=== PATIENT | male | born 1975 ===

== ENCOUNTER 2022-05-04 14:24 | Outpatient (REF) | payer BC, SELFPAY ==
--- NOTE | ~2022-05-04 | XR_ITS ---
EXAMINATION: XR SHOULDER, LEFT CLINICAL INFORMATION: Left shoulder pain COMPARISON: None TECHNIQUE: Four views of the left shoulder. FINDINGS: The bones and soft tissues are normal. No fracture. Glenohumeral and acromioclavicular alignment is anatomic with normal joint space. No abnormal soft tissue calcifications. XR/XR shoulder LT min 2V IMPRESSION: Normal left shoulder.
== END 2022-05-04 14:25 | disposition home or self-care (01) ==
LOC: HO.XRAY 14:24
PROVIDERS: PCP Family Medicine; Visit Provider Physician Assistant
DX: M25.512 Pain in left shoulder (principal)
CPT/HCPCS: 73030

== ENCOUNTER 2023-02-04 05:41 | Emergency (ER) | payer BC, SELFPAY ==
--- NOTE | 2023-02-04 | ECG_ITS ---
Test Reason : SEIZURE Blood Pressure : / mmHG Vent. Rate : 091 BPM Atrial Rate : 091 BPM P-R Int : 182 ms QRS Dur : 082 ms QT Int : 334 ms P-R-T Axes : 016 037 040 degrees QTc Int : 410 ms Normal sinus rhythm Normal ECG No previous ECGs available Referred By: Generic ED Physician Electronically Signed By:Daren Sagastume
--- NOTE | ~2023-02-04 | CT_ITS ---
EXAMINATION: CT brain and CT cervical spine without contrast. CLINICAL INDICATION: Right forehead hematoma. Rule out fracture. TECHNIQUE: 5 mm thin axial and reformatted 2 mm thin sagittal and coronal images of brain were obtained. Subsequently axial 3 mm thin and 2 mm thin sagittal and coronal images of cervical spine were obtained. [facility] [id number] findings: FINDINGS: Brain: There is no acute intra-axial, extra-axial bleed, masses or midline shift. There is no acute infarction evolution. There is a left frontal temporal craniotomy with left inferior frontal and lateral temporal lobe encephalomalacia with ipsilateral dilatation of left frontal horn lateral ventricle. The cutler to white matter is maintained normal. Bone windows reveal no evidence of fracture. There is left frontotemporal craniotomy. No scalp soft tissue swelling seen. The paranasal sinuses are well-aerated and clear. Cervical spine: On sagittal reconstructed images there is maintained cervical lordosis. The vertebral heights and alignment is normal. There is loss of C5-C6 disc height with ventral and posterior spondylosis. Rest the disc heights, all vertebral heights and alignment is preserved. There is mild superior spurring at the C1-C2 disc level. The craniovertebral junction is normal. The prevertebral soft tissues are normal. No visible acute fracture, dislocation or subluxation seen. CT/CT cervical spine wo IV con IMPRESSION: No acute intracranial process seen. There is a left frontotemporal craniotomy with left frontal temporal encephalomalacia and ipsilateral dilatation of frontal horn lateral ventricle. There is no calvarial fracture or any visible scalp hematoma. Mild straightening of cervical lordosis without acute fracture, dislocation or subluxation seen. Degenerative disc changes and spondylosis C5-C6 disc level.
--- NOTE | ~2023-02-04 | CT_ITS ---
EXAMINATION: CT brain and CT cervical spine without contrast. CLINICAL INDICATION: Right forehead hematoma. Rule out fracture. TECHNIQUE: 5 mm thin axial and reformatted 2 mm thin sagittal and coronal images of brain were obtained. Subsequently axial 3 mm thin and 2 mm thin sagittal and coronal images of cervical spine were obtained. [facility] 1376 findings: FINDINGS: Brain: There is no acute intra-axial, extra-axial bleed, masses or midline shift. There is no acute infarction evolution. There is a left frontal temporal craniotomy with left inferior frontal and lateral temporal lobe encephalomalacia with ipsilateral dilatation of left frontal horn lateral ventricle. The cutler to white matter is maintained normal. Bone windows reveal no evidence of fracture. There is left frontotemporal craniotomy. No scalp soft tissue swelling seen. The paranasal sinuses are well-aerated and clear. Cervical spine: On sagittal reconstructed images there is maintained cervical lordosis. The vertebral heights and alignment is normal. There is loss of C5-C6 disc height with ventral and posterior spondylosis. Rest the disc heights, all vertebral heights and alignment is preserved. There is mild superior spurring at the C1-C2 disc level. The craniovertebral junction is normal. The prevertebral soft tissues are normal. No visible acute fracture, dislocation or subluxation seen. CT/CT head/brain wo IV con IMPRESSION: No acute intracranial process seen. There is a left frontotemporal craniotomy with left frontal temporal encephalomalacia and ipsilateral dilatation of frontal horn lateral ventricle. There is no calvarial fracture or any visible scalp hematoma. Mild straightening of cervical lordosis without acute fracture, dislocation or subluxation seen. Degenerative disc changes and spondylosis C5-C6 disc level.
[2023-02-04 05:47] VITALS: BP 118/55; PULSE 98; RESP 18; TEMP 36.9; O2SAT 95; BMI 27.1
[2023-02-04 06:09] LABS: Basophils Absolute Auto 0.1 X10*3/uL (0.0-0.2); Eosinophils Absolute Auto 0.1 X10*3/uL (0.0-0.4); Eosinophils Percent Auto 1.7 % (0-4); Hematocrit 44.2 % (42.0-52.0); Hemoglobin 14.7 g/dl (14.0-18.0); Imm Gran Abs Auto 0.15 X10*3/uL (0.00-0.03); Imm Gran Pct Auto 2.5 % (0.0-0.4); Lymphocytes Absolute Auto 1.2 X10*3/uL (1.2-4.9); Lymphocytes Percent Auto 20.2 % (20-40); MANUAL DIFF FLAG NO; Mean Corpuscular HGB Conc 33.3 g/dl (31.0-36.0); Mean Corpuscular Hemoglobin 28.4 pg (27.0-33.0); Mean Corpuscular Volume 85.3 fL (80.0-98.0); Mean Platelet Volume 10.3 fL (9.4-12.4); Monocytes Absolute Auto 0.4 X10*3/uL (0.1-1.2); Monocytes Percent Auto 6.5 % (2-11); Neutrophils Absolute Auto 4.1 x10*3/uL (2.0-8.3); Neutrophils Percent Auto 68.1 % (45-73); Platelet Count 231 X10*3/uL (160-400); Red Blood Count 5.18 X10*6/uL (4.60-5.80); Red Cell Distribution Width 12.4 % (11.0-16.0)
[2023-02-04 06:24] LABS: Alanine Aminotransferase 67 U/L (0-40); Alkaline Phosphatase 62 U/L (39-117); Anion Gap 22 (12-20); Aspartate Amino Transferase 27 U/L (5-37); Blood Urea Nitrogen 16 mg/dL (9-16); Calcium 8.7 mg/dL (8.4-10.2); Carbon Dioxide 18 mmol/L (22-29); Chloride 105 mmol/L (96-108); Creatinine Clr Calc Pharmacy 84.9; Estimated Glomerular Filt Rate > 60; Ethanol < 10 mg/dL; Glucose Random 132 mg/dL (60-115); Potassium 4.8 mmol/L (3.3-5.1); Sodium 140 mmol/L (135-145); Total Protein 6.4 g/dL (6.5-8.0)
--- NOTE | 2023-02-04 07:34 | ECG_ITS ---
Test Reason : Seizure, evaluate QTC interval Blood Pressure : / mmHG Vent. Rate : 075 BPM Atrial Rate : 075 BPM P-R Int : 178 ms QRS Dur : 086 ms QT Int : 338 ms P-R-T Axes : 024 037 039 degrees QTc Int : 377 ms Normal sinus rhythm Normal ECG When compared with ECG of 04-FEB-2023 06:12, No significant change was found Referred By: Dakotah Brown Electronically Signed By:Daren Sagastume
--- NOTE | 2023-02-04 07:35 | ED.SEIZURE ---
HPI - Seizure General Chief Complaint: Seizure Stated Complaint: LAC Time Seen by Provider: 02/04/23 07:18 Source: patient and family (Fiancee) Mode of arrival: EMS Limitations: no limitations History of Present Illness HPI Narrative: 47-year-old male who presents emergency department for evaluation of seizure. The patient has a known seizure disorder and takes Lamictal twice a day. He states that he has been compliant with his medications and his last seizure was 10 years prior. The patient was sleeping. His fiancee states that she got up at 0430 hours. She then heard unusual breathing noises coming from the patient the patient then got up and started walking towards door. He yelled and then fell forward striking his head and stomach on the floor. The fiancee states he then started shaking all over. He then had 1-2 episodes of vomiting. She called an ambulance and was transported to the emergency department. At the time my evaluation, patient is awake and alert back to his baseline. The patient does have sleep apnea and he believes that he has not been getting very good sleep. He states he has been more tired than usual. His fiancee states that when he is wearing the CPAP at night he snores and does not look like he is getting good sleep. The fiance states that he has also had 2 episodes of sleepwalking over the last 2-3 weeks which is unusual for him. The patient denying being ill in any way over the past week. He denied fever, chills, rhinorrhea, sore throat, cough, chest pain, shortness of breath. He denies alcohol or drug use. Seizure History: Yes Place: Home Related Data Previous Rx's Medication Instructions Recorded cyclobenzaprine 10 mg tablet 10 mg PO BEDTIME #10 tabs 05/04/22 lidocaine 4 % topical patch 1 patch topical DAILY PRN pain #15 05/04/22 (AsperFlex (lidocaine)) ea Allergies Allergy/AdvReac Type Severity Reaction Status Date / Time No Known Allergies Allergy Verified 05/04/22 13:38 Review of Systems Review of Systems: Yes all other systems are reviewed and are negative [facility] Past Medical History [facility] Narrative: Past medical history: Seizure disorder. Social history: The patient states that he vapes nicotine products 10 times a day for 4 years. Denies alcohol use. He denies drug use. Social History Social History Alcohol intake: never Patient Tobacco Use Status: Never used Tobacco Smoked in Last 30 Days: No Use of substances other than those prescribed or required for medical reasons: No Advance Directives: No Advance Directives Information Provided: Yes Physical Exam Vital Signs: Vital Signs: Last Vital Signs Temp 98.4 F 02/04/23 05:47 Pulse 98 02/04/23 05:47 Resp 18 02/04/23 05:47 BP 118/55 L 02/04/23 05:47 Pulse Ox 95 02/04/23 05:47 O2 Del Method Room Air 02/04/23 05:47 BMI result Body Mass Index 27.1 Const: General: cooperative and no acute distress Orientation/consciousness: oriented to person and oriented to place Limitations: no limitations HEENT: Head: Yes normal to inspection, Yes normocephalic and Yes hematoma (With ecchymosis right forehead) Ears: external ears normal General nose exam: Normal external nose present Face and sinus: Yes normal facial exam Mouth: Normal oral and palatal mucosa present Throat: Yes posterior oropharynx normal Eyes: General: appearance normal, both eyes and all related structures Pupils: Equal, round and reactive pupils present Neck: Other: Patient has tenderness palpation of his cervical spine diffusely as well as his trapezius muscles bilateral Chest: Chest palpation & inspection: normal inspection of the chest and normal palpation of entire chest wall Resp: Effort & Inspection: normal respiratory effort and able to speak in complete sentences Auscultation: clear to auscultation bilaterally Cardio: Rate: regular rate Rhythm: regular rhythm Heart sounds: S1 normal heart sound present, S2 normal heart sound present and no murmurs GI: Inspection: Yes normal to inspection Palpation (GI): Soft to palpation, nontender and no guarding Auscultation: normal bowel sounds : General: Yes no CVA tenderness Back/Spine/Pelvis: Back: no CVA tenderness Skin: General skin exam: no rashes or lesions noted Neuro: General: oriented to person and oriented to place Cranial nerves: Yes CN's II-XII intact bilaterally and Yes Equal, round and reactive pupils present Cognition (Neuro): normal cognition Motor exam (neuro): 5/5 motor strength present throughout Extrem: General: Yes normal to inspection Psych: Appearance: grossly normal Speech and movement: Normal speech and movement present Affect: normal affect Attitude: cooperative Thought process: Normal thought process present Medical Decision Making Medical Decision Making MDM Narrative: 47-year-old male with a known seizure disorder, on Lamictal, compliant with medications who presents emergency department by ambulance for evaluation of a seizure. The patient's last seizure was 10 years prior. Patient does have sleep apnea and he believes that he has not been getting good sleep recently and has been feeling tired and lack of sleep may have triggered a seizure.. He denied drinking alcohol or using drugs. Patient's physical examination did reveal tenderness palpation of his neck as well as hematoma to his right forehead with tenderness with palpation of this area. I did order laboratory evaluation to include CBC, CMP, alcohol level, urine drug screen. Also ordered EKG to evaluate the patient's QTC interval and the patient will be kept on a cardiac surgeon to rule out arrhythmia is possible cause of his seizure. CT scan of the patient's head and cervical spine will be obtained. Patient was ordered to get normal saline IV x1 L and Ativan 2 mg IV to try to raise his seizure threshold and prevent 2nd seizure while he is here in the emergency department. 0744: My independent interpretation patient's laboratory evaluation is as follows: CBC was normal. CMP revealed a low bicarb of 18, elevated anion gap of 22 which is consistent with lactic acidosis secondary to seizure. Glucose was elevated 132. The ALT was elevated 67. At the end of my shift, patient's workup is not complete, therefore the patient's care was turned over to my colleague, Dr. Fox. Differential Diagnosis Differential diagnosis includes was not limited to seizure, pseudo-seizure, skull fracture, neck fracture, electrolyte abnormality Lab Data 02/04/23 06:05 02/04/23 06:05 Labs: Lab Results 02/04/23 02/04/23 Range/Units 06:05 06:05 WBC 6.0 (4.8-10.8) X10*3/uL RBC 5.18 (4.60-5.80) X10*6/uL Hgb 14.7 (14.0-18.0) g/dl Hct 44.2 (42.0-52.0) % MCV 85.3 (80.0-98.0) fL MCH 28.4 (27.0-33.0) pg MCHC 33.3 (31.0-36.0) g/dl RDW 12.4 (11.0-16.0) % Plt Count 231 (160-400) X10*3/uL MPV 10.3 (9.4-12.4) fL Immature Gran % (Auto) 2.5 H (0.0-0.4) % Neut % (Auto) 68.1 (45-73) % Lymph % (Auto) 20.2 (20-40) % [place] % (Auto) 6.5 (2-11) % Eos % (Auto) 1.7 (0-4) % Baso % (Auto) 1.0 (0-2) % Lymph # (Auto) 1.2 (1.2-4.9) X10*3/uL [place] # (Auto) 0.4 (0.1-1.2) X10*3/uL Eos # (Auto) 0.1 (0.0-0.4) X10*3/uL Baso # (Auto) 0.1 (0.0-0.2) X10*3/uL Abs Immat Gran (auto) 0.15 H (0.00-0.03) X10*3/uL Absolute Neuts (auto) 4.1 (2.0-8.3) x10*3/uL Absolute Nucleated RBC 0.000 (0.0-0.012) X10*3/uL Nucleated RBC % (auto) 0.0 (0.0-0.2) /100WBC Sodium 140 (135-145) mmol/L Potassium 4.8 (3.3-5.1) mmol/L Chloride 105 (96-108) mmol/L Carbon Dioxide 18 L (22-29) mmol/L Anion Gap 22 H (12-20) BUN 16 (9-16) mg/dL Creatinine 1.18 (0.5-1.4) mg/dL Estim Creat Clear Calc 84.9 Estimated GFR > 60 Random Glucose 132 H (60-115) mg/dL Calcium 8.7 (8.4-10.2) mg/dL Total Bilirubin 1.0 (0.0-1.0) mg/dL AST 27 (5-37) U/L ALT 67 H (0-40) U/L Alkaline Phosphatase 62 (39-117) U/L Total Protein 6.4 L (6.5-8.0) g/dL Albumin 4.0 (3.5-5.0) g/dL Ethyl Alcohol < 10 mg/dL Discharge Plan Discharge Clinical Impression: Seizure, CHI (closed head injury), Traumatic hematoma of forehead, Acute neck pain, Fall Patient Disposition: Still a Patient Prescriptions: No Action cyclobenzaprine 10 mg tablet 10 mg PO BEDTIME Qty: 10 0RF lidocaine [AsperFlex (lidocaine)] 4 % adhesive patch,medicated 1 patch topical DAILY PRN (Reason: pain) Qty: 15 0RF
[2023-02-04 07:46] VITALS: BP 119/87; PULSE 79; RESP 18; O2SAT 97
[2023-02-04] MEDS: LORazepam 2 MG/ML VIAL IVPUSH (07:47)
[2023-02-04] MEDS: 0.9 % Sodium Chloride 1,000 ML 999 ML IV (07:47)
[2023-02-04 08:35] LABS: Amphetamine Screen Urine Not Detected (Not Detect); Barbiturates, Urine Not Detected (Not Detect); Benzodiazepines Screen Urine Not Detected (Not Detect); Cannabinoid Screen Urine Not Detected (Not Detect); Cocaine Screen Urine Not Detected (Not Detect); Fentanyl, urine Not Detected (Not Detect); Opiate Screen Urine Not Detected (Not Detect); Phencyclidine Screen Urine Not Detected (Not Detect)
[2023-02-04 08:45] VITALS: BP 113/62; PULSE 83; RESP 19; O2SAT 97
[2023-02-04 09:58] VITALS: BP 113/62; PULSE 69; RESP 14; O2SAT 97
== END 2023-02-04 09:59 | disposition home or self-care (01) ==
PROVIDERS: Emergency Provider Emergency Medicine Emergency Medical Services
DX: S00.93XA Contusion of unspecified part of head, initial encounter (principal); R56.9 Unspecified convulsions; M54.2 Cervicalgia; R51.9 Headache, unspecified; R07.89 Other chest pain; W01.10XA Fall on same level from slipping, tripping and stumbling with subsequent striking against unspecified object, initial encounter; Y93.9 Activity, unspecified; Y92.9 Unspecified place or not applicable; Y99.9 Unspecified external cause status; Z79.899 Other long term (current) drug therapy
CPT/HCPCS: 36415; 70450; 72125; 80053; 80307; 82077; 85025; 93005; 96374; 99284; 99285; J2060

== ENCOUNTER 2023-07-25 18:13 | Emergency (ER) | payer BC, SELFPAY ==
--- NOTE | ~2023-07-25 | CT_ITS ---
EXAMINATION: CT HEAD WITHOUT CONTRAST CLINICAL INFORMATION: Altered mental status. Slurred speech. COMPARISON: CT head 02/04/2023. TECHNIQUE: Contiguous axial imaging was performed from the skull base to vertex without intravenous administration of contrast. This CT examination was performed using dose optimization techniques as appropriate, variously including the following: *Automated exposure control *Adjustment of mA and/or kV according to patient size (this includes techniques or standardized protocols for targeted exams where dose is matched to indication/reason for exam; i.e. extremities or head) *Use of iterative reconstruction technique DLP: 835 mGy-cm FINDINGS: There are chronic changes of a left craniotomy. There is gliosis and encephalomalacia involving the lesser hemisphere with involvement of the left frontal lobe, left anterior temporal lobe, and insula. [place]ar-white matter differentiation is otherwise preserved and there is no evidence of acute territorial infarct. No acute hemorrhage or abnormal extra-axial collection. No intracranial mass effect or hydrocephalus. The skull base is intact. No mastoid or middle ear effusion. There is a retention cyst within the alveolar recess of the right maxillary sinus. Otherwise no active paranasal sinus disease. CT/CT head/brain wo IV con IMPRESSION: Stable examination with chronic changes of a left craniotomy. 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 No evidence of acute territorial infarct or hemorrhage.
--- NOTE | 2023-07-25 18:16 | ECG_ITS ---
Test Reason : AMS Blood Pressure : / mmHG Vent. Rate : 074 BPM Atrial Rate : 074 BPM P-R Int : 174 ms QRS Dur : 086 ms QT Int : 352 ms P-R-T Axes : 047 043 046 degrees QTc Int : 390 ms Normal sinus rhythm Normal ECG When compared with ECG of 04-FEB-2023 08:25, No significant change was found Referred By: Generic ED Physician Electronically Signed By:AUDRA YADAV
[2023-07-25 18:17] VITALS: BMI 32.5
--- NOTE | 2023-07-25 18:17 | ED_ITS ---
HPI - General Adult General Chief complaint: Neuro Symptoms/Deficit Stated complaint: slurred speech confusion Time Seen by Provider: 07/25/23 19:00 Source: patient Mode of arrival: ambulatory Limitations: no limitations History of Present Illness HPI narrative: Patient with history of meningioma more than 10 years ago , post craniotomy on Lamictal post surgery seizures fairly compliant. Medication 6 months ago had a seizure in 02/20 so restarted on Lamictal been doing okay since yesterday evening been feeling weak and tired last night patient went to bed at midnight and woke up at 05:30 which is usual for him and 10:30 was feeling tired and sleepy went back to sleep and woke up at 17:30 when he woke up at 17:30 noted the patient has some slurred speech able to talk but was little confused by the time patient came to the ER his speech was back to normal no other focal deficit patient ambulatory assist no headache no seizures Related Data Previous Rx's Medication Instructions Recorded cyclobenzaprine 10 mg tablet 10 mg PO BEDTIME #10 tabs 05/04/22 lidocaine 4 % topical patch 1 patch topical DAILY PRN pain #15 05/04/22 (AsperFlex (lidocaine)) ea Allergies Allergy/AdvReac Type Severity Reaction Status Date / Time No Known Allergies Allergy Verified 05/04/22 13:38 Review of Systems 2 Review of Systems: Yes all other systems are reviewed and are negative [facility] Past Medical History Medical History Seizure disorder Meningioma Surgical History H/O craniotomy Social History Social History Alcohol intake: never Patient Tobacco Use Status: Never used Tobacco Smoked in Last 30 Days: Yes Use of substances other than those prescribed or required for medical reasons: No Advance Directives: No Advance Directives Information Provided: No Physical Exam ED Vital Signs: Vital Signs - 24 hr 07/25/23 18:27 07/25/23 20:37 Pulse Rate 85 70 Respiratory Rate 16 16 Blood Pressure 130/48 L 125/77 Pulse Oximetry 93 98 Oxygen Delivery Method Room Air Room Air BMI result Body Mass Index 32.5 Appearance: Alert. Oriented X3. No acute distress. Eyes: PERRLA, No Nystagmus ENT: Pharynx normal. Oral Mucosa moist Neck: Normal inspection. Neck supple. CVS: Normal heart rate and rhythm. Pulses normal. Respiratory: No respiratory distress. Equal air entry bilateral, no wheezing/rales/rhonchi Abdomen: Soft and nontender. Bowel sounds are present, no mass palpable, no CVA tenderness Skin: Skin warm and dry. Normal skin color. Normal skin turgor. Extremities: No lower extremity edema. No calf tenderness Neuro: Oriented X 3. No motor deficit. No sensory deficit.No cerebellar signs , cranial nerves II-XII intact Course Course Course Narrative: RME performed by Meghan Sadler PA-C. Patient is a 47 year old assigned male at presenting to the emergency department with left shoulder pain. Patient's partner states that the patient had an episode of confusion where he didn't know where he was, what he was doing, todays date, or the year. Labs and imaging ordered. Patient placed back in the waiting room pending room availability and results. Medical Decision Making Medical Decision Making [facility] Narrative: Etiology patient lethargic and sleeping is not very clear no upper respiratory symptoms no other source of infection labs are stable patient had no neuro deficit in the ER likely patient was confused earlier post? post Ictal /tia vs viral syndrome. At this time patient does not have any neuro deficit will discharge patient advised to continue his medication and follow with PCP patient had low platelets 157 1000 will hold any antiplatelets at this time Differential Diagnosis Differential Diagnoses: The differential diagnosis associated with the presentation includes Seizures/viral syndrome/TIA Lab Data [facility] Lab Attestation statement: I reviewed the patient's lab results. 07/25/23 18:36 07/25/23 18:36 Labs: Lab Results 07/25/23 07/25/23 07/25/23 Range/Units 18:30 18:36 21:45 WBC 7.3 (4.8-10.8) X10*3/uL RBC 5.05 (4.60-5.80) X10*6/uL Hgb 14.8 (14.0-18.0) g/dl Hct 44.0 (42.0-52.0) % MCV 87.1 (80.0-98.0) fL MCH 29.3 (27.0-33.0) pg MCHC 33.6 (31.0-36.0) g/dl RDW 12.3 (11.0-16.0) % Plt Count 157 L D (160-400) X10*3/uL MPV 11.1 (9.4-12.4) fL Immature Gran % (Auto) 1.2 H (0.0-0.4) % Neut % (Auto) 68.9 (45-73) % Lymph % (Auto) 20.3 (20-40) % [place] % (Auto) 6.2 (2-11) % Eos % (Auto) 2.6 (0-4) % Baso % (Auto) 0.8 (0-2) % Lymph # (Auto) 1.5 (1.2-4.9) X10*3/uL [place] # (Auto) 0.5 (0.1-1.2) X10*3/uL Eos # (Auto) 0.2 (0.0-0.4) X10*3/uL Baso # (Auto) 0.1 (0.0-0.2) X10*3/uL Abs Immat Gran (auto) 0.09 H (0.00-0.03) X10*3/uL Absolute Neuts (auto) 5.0 (2.0-8.3) x10*3/uL Absolute Nucleated RBC 0.000 (0.0-0.012) X10*3/uL Nucleated RBC % (auto) 0.0 (0.0-0.2) /100WBC PT 11.5 (11.1-13.3) SEC INR 0.9 (0.9-1.1) APTT 30.8 (26.0-36.4) SEC Sodium 142 (135-145) mmol/L Potassium 4.2 (3.3-5.1) mmol/L Chloride 106 (96-108) mmol/L Carbon Dioxide 27 (22-29) mmol/L Anion Gap 13 (12-20) BUN 19 H (9-16) mg/dL Creatinine 1.09 (0.5-1.4) mg/dL Estim Creat Clear Calc 112.9 Estimated GFR > 60 POC Glucose 99 (60-115) mg/dL Random Glucose 104 (60-115) mg/dL Calcium 9.5 D (8.4-10.2) mg/dL Magnesium 2.1 (1.6-2.6) mg/dL Total Bilirubin 0.8 (0.0-1.0) mg/dL AST 18 (5-37) U/L ALT 22 (0-40) U/L Alkaline Phosphatase 56 (39-117) U/L Total Protein 7.0 (6.5-8.0) g/dL Albumin 4.4 (3.5-5.0) g/dL Urine Color Dark Yellow Urine Appearance Cloudy Urine pH 7.5 (5.0-9.0) Ur Specific [place] 1.020 (1.005-1.025) Urine Protein Negative (Neg-Trace) mg/dL Urine Glucose (UA) Negative (Negative) mg/dL Urine Ketones Negative (Negative) mg/dL Urine Blood Negative (Negative) Urine Nitrite Negative (Negative) Ur Leukocyte Esterase Negative (Negative) Urine Opiates Screen Not Detected (Not Detect) Urine Fentanyl Screen Not Detected (Not Detect) Ur Barbiturates Screen Not Detected (Not Detect) Lamotrigine Cancelled Ur Phencyclidine Scrn Not Detected (Not Detect) Ur Amphetamines Screen Not Detected (Not Detect) U Benzodiazepines Scrn Not Detected (Not Detect) Urine Cocaine Screen Not Detected (Not Detect) U Marijuana (THC) Screen POSITIVE H (Not Detect) Ethyl Alcohol < 10 mg/dL COVID-19 (SHANIQUA) Negative (Negative) COVID-19 Clin Com See Note Discharge Plan Discharge Clinical Impression: Weakness Patient Disposition: Home, Self-Care Instructions: Weakness (ED) Additional Instructions: Drink plenty of fluids Follow with PCP if any concerns Prescriptions: No Action cyclobenzaprine 10 mg tablet 10 mg PO BEDTIME Qty: 10 0RF lidocaine [AsperFlex (lidocaine)] 4 % adhesive patch,medicated 1 patch topical DAILY PRN (Reason: pain) Qty: 15 0RF Interventions: ED Discharge Assessment Last Done: 07/25/23 22:21 Discharge Date/Time: 07/25/23 22:24
--- NOTE | 2023-07-25 18:25 | PC.NURSE ---
PT/ WAS TRANSFER TO ROOM 4 WITH CLINICAL CABINET INSTALLER KAILASH.
[2023-07-25 18:27] VITALS: BP 130/48; PULSE 85; RESP 16; O2SAT 93
[2023-07-25 18:34] LABS: Glucose, Whole Blood 99 mg/dL (60-115)
[2023-07-25 18:40] LABS: MANUAL DIFF FLAG NO
--- NOTE | 2023-07-25 18:44 | PC.NURSE ---
patient awake and alert, affect does not vary. patients pupils pinpoint, seems to be very confused as to why he is in the ER. patient states he takes his seizure medications as prescribed and has not had a seizure since january.
[2023-07-25 18:58] LABS: Alanine Aminotransferase 22 U/L (0-40); Albumin Level 4.4 g/dL (3.5-5.0); Alkaline Phosphatase 56 U/L (39-117); Anion Gap 13 (12-20); Aspartate Amino Transferase 18 U/L (5-37); Bilirubin Total 0.8 mg/dL (0.0-1.0); Blood Urea Nitrogen 19 mg/dL (9-16); Calcium 9.5 mg/dL (8.4-10.2); Carbon Dioxide 27 mmol/L (22-29); Chloride 106 mmol/L (96-108); Creatinine Clr Calc Pharmacy 112.9; Estimated Glomerular Filt Rate > 60; Ethanol < 10 mg/dL; Glucose Random 104 mg/dL (60-115); Magnesium 2.1 mg/dL (1.6-2.6); Potassium 4.2 mmol/L (3.3-5.1); Sodium 142 mmol/L (135-145)
[2023-07-25 19:04] LABS: Basophils Absolute Auto 0.1 X10*3/uL (0.0-0.2); Basophils Percent Auto 0.8 % (0-2); Eosinophils Absolute Auto 0.2 X10*3/uL (0.0-0.4); Eosinophils Percent Auto 2.6 % (0-4); Hemoglobin 14.8 g/dl (14.0-18.0); Imm Gran Abs Auto 0.09 X10*3/uL (0.00-0.03); Imm Gran Pct Auto 1.2 % (0.0-0.4); Lymphocytes Absolute Auto 1.5 X10*3/uL (1.2-4.9); Lymphocytes Percent Auto 20.3 % (20-40); Mean Corpuscular HGB Conc 33.6 g/dl (31.0-36.0); Mean Corpuscular Hemoglobin 29.3 pg (27.0-33.0); Mean Corpuscular Volume 87.1 fL (80.0-98.0); Mean Platelet Volume 11.1 fL (9.4-12.4); Monocytes Absolute Auto 0.5 X10*3/uL (0.1-1.2); Monocytes Percent Auto 6.2 % (2-11); Neutrophils Percent Auto 68.9 % (45-73); Platelet Count 157 X10*3/uL (160-400); Red Blood Count 5.05 X10*6/uL (4.60-5.80); Red Cell Distribution Width 12.3 % (11.0-16.0); White Blood Count 7.3 X10*3/uL (4.8-10.8)
[2023-07-25 19:12] LABS: INTERNATIONAL NORM RATIO 0.9 (0.9-1.1); Prothrombin Time 11.5 SEC (11.1-13.3)
[2023-07-25 19:16] LABS: Partial Thromboplastin Time 30.8 SEC (26.0-36.4)
[2023-07-25 20:37] VITALS: BP 125/77; PULSE 70; RESP 16; O2SAT 98
[2023-07-25 21:55] LABS: Appearance Urine Cloudy; Color Urine Dark Yellow; Glucose Urine UA Negative (Negative); Leukocyte Esterase Urine Negative (Negative); Nitrite Urine Negative (Negative); PH 7.5 (5.0-9.0); Urine Blood Negative (Negative); Urine Ketones Negative (Negative); Urine Protein Negative (Neg-Trace)
[2023-07-25 22:01] LABS: Amphetamine Screen Urine Not Detected (Not Detect); Barbiturates, Urine Not Detected (Not Detect); Benzodiazepines Screen Urine Not Detected (Not Detect); Cannabinoid Screen Urine POSITIVE (Not Detect); Cocaine Screen Urine Not Detected (Not Detect); Fentanyl, urine Not Detected (Not Detect); Opiate Screen Urine Not Detected (Not Detect); Phencyclidine Screen Urine Not Detected (Not Detect)
[2023-07-25 22:07] LABS: COVID-19 Test Negative (Negative); IDNOW Serial# 08D9AD1C
--- NOTE | 2023-07-25 22:21 | PC.NURSE ---
pt assessed at d/c, denies any neuro symptoms, ambulatory, gait steady
== END 2023-07-25 22:24 | disposition home or self-care (01) ==
PROVIDERS: Physician Assistant Medical; Emergency Provider Internal Medicine
DX: R53.1 Weakness (principal); Z20.822 Contact with and (suspected) exposure to COVID-19; D69.59 Other secondary thrombocytopenia; D32.9 Benign neoplasm of meninges, unspecified; Z79.899 Other long term (current) drug therapy
CPT/HCPCS: 36415; 70450; 80053; 80175; 80307; 81003; 82947; 83735; 85025; 85610; 85730; 87635; 93005; 99284

== ENCOUNTER 2023-12-10 02:33 | Emergency (ER) | payer BC, SELFPAY ==
--- NOTE | ~2023-12-10 | XR_ITS ---
EXAMINATION: XR CHEST CLINICAL INFORMATION: Dyspnea. Concern for aspiration. COMPARISON: None available. TECHNIQUE: Frontal view of the chest was obtained. FINDINGS: The cardiomediastinal silhouette is within normal limits. There is no focal lung consolidation or pleural effusion. The bony structures and soft tissues are unremarkable. XR/XR chest 1V IMPRESSION: No acute cardiopulmonary process.
--- NOTE | 2023-12-10 02:40 | ED.SEIZURE ---
HPI - Seizure General Chief Complaint: Seizure Stated Complaint: seizure Time Seen by Provider: 12/10/23 02:39 Source: EMS Mode of arrival: EMS Limitations: no limitations History of Present Illness HPI Narrative: Patient's history of generalized tonic-clonic seizure on Lamictal 325 mg daily last seizure was in 02/20 came here as while sleeping with CPAP on had a seizure which lasted only for few minute postictal patient was unresponsive which is usual for him. Usually patient gets seizure and sleep afterwards for long time as soon as patient arrived in the ER patient had another generalized tonic-clonic seizure which lasted for about 3 minutes postictal patient was snoring and obtunded requiring oxygen patient spitted small amount of blood at home no head injury or fall Seizure History: Yes Related Data Previous Rx's Medication Instructions Recorded cyclobenzaprine 10 mg tablet 10 mg PO BEDTIME #10 tabs 05/04/22 lidocaine 4 % topical patch 1 patch topical DAILY PRN pain #15 05/04/22 (AsperFlex (lidocaine)) ea Allergies Allergy/AdvReac Type Severity Reaction Status Date / Time No Known Allergies Allergy Verified 12/10/23 03:12 Review of Systems Review of Systems: Yes all other systems are reviewed and are negative PMFSH Past Medical History Medical History Seizure disorder Meningioma Surgical History H/O craniotomy Social History Social History Unable to assess alcohol history related to: Unable to respond Alcohol intake: never Patient Tobacco Use Status: Never used Tobacco Advance Directives: No Advance Directives Information Provided: No Physical Exam Vital Signs: Vital Signs: Last Vital Signs Pulse 114 H 12/10/23 03:10 Resp 30 H 12/10/23 03:10 BP 135/84 12/10/23 03:10 Pulse Ox 93 12/10/23 03:10 O2 Del Method Oxymask 12/10/23 03:10 O2 Flow Rate 15 12/10/23 03:10 BMI result Body Mass Index 36.9 Appearance: Obtunded No acute distress. Eyes: PERRL ENT: Pharynx normal. Oral Mucosa moist at , nc tongue bite at lateral margin Neck: Normal inspection. Neck supple. CVS: Normal heart rate and rhythm. Pulses normal. Respiratory: No respiratory distress. Equal air entry bilateral, prolonged expiration Abdomen: Soft and nontender. Bowel sounds are present, Skin: Skin warm and dry. Normal skin color. Normal skin turgor. Extremities: No lower extremity edema. No calf tenderness Neuro: Obtunded Medications Administered Discontinued Medications Generic Name Dose Route Start Last Admin Trade Name Freq PRN Reason Stop Dose Admin Midazolam HCl 2 mg 12/10/23 02:39 12/10/23 02:41 Midazolam Hcl/Pf 2 Mg/2 Ml Vial IVPUSH 12/10/23 02:40 2 mg ONCE ONE Administration Medical Decision Making Medical Decision Making [facility] Narrative: 05:00 Patient with generalized tonic-clonic seizure recently increased the dose of Lamictal had 2 seizures today 1 at home and another one after arrival responded to Versed in the ED patient remained obtunded for few hours after seizure patient is sitting at the bedside alert and awake patient states his reliable and take medication on time lamictal was increased from 300 to 325 about 10 days ago Differential Diagnosis Differential Diagnoses: The differential diagnosis associated with the presentation includes Status epilepticus/seizures Lab Data [facility] Lab Attestation statement: I reviewed the patient's lab results. 12/10/23 03:04 12/10/23 03:04 Labs: Lab Results 12/10/23 Range/Units 03:04 WBC 14.7 H (4.8-10.8) X10*3/uL RBC 5.68 (4.60-5.80) X10*6/uL Hgb 16.4 (14.0-18.0) g/dl Hct 51.0 (42.0-52.0) % MCV 89.8 (80.0-98.0) fL MCH 28.9 (27.0-33.0) pg MCHC 32.2 (31.0-36.0) g/dl RDW 11.9 (11.0-16.0) % Plt Count 228 D (160-400) X10*3/uL MPV 10.7 (9.4-12.4) fL Immature Gran % (Auto) 1.8 H (0.0-0.4) % Neut % (Auto) 57.9 (45-73) % Lymph % (Auto) 29.5 (20-40) % [place] % (Auto) 6.8 (2-11) % Eos % (Auto) 3.1 (0-4) % Baso % (Auto) 0.9 (0-2) % Lymph # (Auto) 4.3 (1.2-4.9) X10*3/uL [place] # (Auto) 1.0 (0.1-1.2) X10*3/uL Eos # (Auto) 0.5 H (0.0-0.4) X10*3/uL Baso # (Auto) 0.1 (0.0-0.2) X10*3/uL Abs Immat Gran (auto) 0.26 H (0.00-0.03) X10*3/uL Absolute Neuts (auto) 8.5 H (2.0-8.3) x10*3/uL Absolute Nucleated RBC 0.000 (0.0-0.012) X10*3/uL Nucleated RBC % (auto) 0.0 (0.0-0.2) /100WBC Sodium 138 (135-145) mmol/L Potassium 4.6 (3.3-5.1) mmol/L Chloride 101 (96-108) mmol/L Carbon Dioxide 12 L (22-29) mmol/L Anion Gap 30 H (12-20) BUN 14 (9-16) mg/dL Creatinine 1.61 H (0.5-1.4) mg/dL Estim Creat Clear Calc 76.1 Estimated GFR 46 Random Glucose 186 H (60-115) mg/dL Calcium 9.8 (8.4-10.2) mg/dL Total Bilirubin 0.9 (0.0-1.0) mg/dL AST 27 (5-37) U/L ALT 33 (0-40) U/L Alkaline Phosphatase 69 (39-117) U/L Total Protein 8.4 H (6.5-8.0) g/dL Albumin 5.1 H (3.5-5.0) g/dL Independent Interpretation I performed an independent interpretation of an: Plain X-Ray Radiology Impression Discussion of test interpretation with radiology: I have reviewed the radiologist's reading. Discharge Plan Discharge Clinical Impression: Generalized seizure Patient Disposition: Home, Self-Care Instructions: Recurrent Seizures in Adults (ED) Additional Instructions: Continue Lamictal as prescribed byyour neurologist and follow-up with them Prescriptions: No Action cyclobenzaprine 10 mg tablet 10 mg PO BEDTIME Qty: 10 0RF lidocaine [AsperFlex (lidocaine)] 4 % adhesive patch,medicated 1 patch topical DAILY PRN (Reason: pain) Qty: 15 0RF
[2023-12-10] MEDS: Midazolam HCl/PF 2 MG/2 ML VIAL IVPUSH (02:41)
[2023-12-10 02:50] VITALS: BP 128/84; PULSE 92; O2SAT 94
[2023-12-10 02:52] VITALS: BMI 36.9
[2023-12-10 03:09] LABS: MANUAL DIFF FLAG NO
[2023-12-10 03:10] VITALS: BP 135/84; PULSE 114; RESP 30; O2SAT 93
[2023-12-10 03:11] LABS: Basophils Absolute Auto 0.1 X10*3/uL (0.0-0.2); Basophils Percent Auto 0.9 % (0-2); Eosinophils Absolute Auto 0.5 X10*3/uL (0.0-0.4); Eosinophils Percent Auto 3.1 % (0-4); Hemoglobin 16.4 g/dl (14.0-18.0); Imm Gran Abs Auto 0.26 X10*3/uL (0.00-0.03); Imm Gran Pct Auto 1.8 % (0.0-0.4); Lymphocytes Absolute Auto 4.3 X10*3/uL (1.2-4.9); Lymphocytes Percent Auto 29.5 % (20-40); Mean Corpuscular HGB Conc 32.2 g/dl (31.0-36.0); Mean Corpuscular Hemoglobin 28.9 pg (27.0-33.0); Mean Corpuscular Volume 89.8 fL (80.0-98.0); Mean Platelet Volume 10.7 fL (9.4-12.4); Monocytes Percent Auto 6.8 % (2-11); Neutrophils Absolute Auto 8.5 x10*3/uL (2.0-8.3); Neutrophils Percent Auto 57.9 % (45-73); Platelet Count 228 X10*3/uL (160-400); Red Blood Count 5.68 X10*6/uL (4.60-5.80); Red Cell Distribution Width 11.9 % (11.0-16.0); White Blood Count 14.7 X10*3/uL (4.8-10.8)
[2023-12-10 03:32] LABS: Alanine Aminotransferase 33 U/L (0-40); Albumin Level 5.1 g/dL (3.5-5.0); Alkaline Phosphatase 69 U/L (39-117); Anion Gap 30 (12-20); Aspartate Amino Transferase 27 U/L (5-37); Bilirubin Total 0.9 mg/dL (0.0-1.0); Blood Urea Nitrogen 14 mg/dL (9-16); Calcium 9.8 mg/dL (8.4-10.2); Carbon Dioxide 12 mmol/L (22-29); Chloride 101 mmol/L (96-108); Creatinine Clr Calc Pharmacy 76.1; Estimated Glomerular Filt Rate 46; Glucose Random 186 mg/dL (60-115); Potassium 4.6 mmol/L (3.3-5.1); Sodium 138 mmol/L (135-145); Total Protein 8.4 g/dL (6.5-8.0)
--- NOTE | 2023-12-10 05:48 | PC.NURSE ---
pt actively seizing on arrival to ER. Versed 2mg IV given per verbal order from MD. pt noted to be postictal, placed on non-rebreather w/ nasopharyngeal airway. O2 sat 94%
--- NOTE | 2023-12-10 06:07 | PC.NURSE ---
a/o x4, ambulatory to the bathroom w/ assist of 1. pt states hes feels better and is requesting to go home.
[2023-12-10 06:38] VITALS: RESP 18
== END 2023-12-10 06:59 | disposition home or self-care (01) ==
PROVIDERS: Emergency Provider Internal Medicine
DX: G40.409 Other generalized epilepsy and epileptic syndromes, not intractable, without status epilepticus (principal)
CPT/HCPCS: 36415; 71045; 80053; 85025; 96374; 99284; J2250

== ENCOUNTER 2024-02-13 02:35 | Emergency (ER) | payer BC, SELFPAY ==
[2024-02-13 02:37] VITALS: BP 124/69; PULSE 58; RESP 20; TEMP 36.6; O2SAT 98; BMI 32.1
[2024-02-13 03:14] LABS: MANUAL DIFF FLAG NO
[2024-02-13 03:15] LABS: Basophils Absolute Auto 0.1 X10*3/uL (0.0-0.2); Basophils Percent Auto 1.2 % (0-2); Eosinophils Absolute Auto 0.3 X10*3/uL (0.0-0.4); Eosinophils Percent Auto 4.1 % (0-4); Hematocrit 43.1 % (42.0-52.0); Hemoglobin 14.5 g/dl (14.0-18.0); Imm Gran Abs Auto 0.06 X10*3/uL (0.00-0.03); Imm Gran Pct Auto 0.9 % (0.0-0.4); Lymphocytes Absolute Auto 1.7 X10*3/uL (1.2-4.9); Lymphocytes Percent Auto 25.2 % (20-40); Mean Corpuscular HGB Conc 33.6 g/dl (31.0-36.0); Mean Corpuscular Hemoglobin 29.5 pg (27.0-33.0); Mean Corpuscular Volume 87.6 fL (80.0-98.0); Mean Platelet Volume 10.8 fL (9.4-12.4); Monocytes Absolute Auto 0.5 X10*3/uL (0.1-1.2); Monocytes Percent Auto 7.8 % (2-11); Neutrophils Absolute Auto 4.2 x10*3/uL (2.0-8.3); Neutrophils Percent Auto 60.8 % (45-73); Platelet Count 161 X10*3/uL (160-400); Red Blood Count 4.92 X10*6/uL (4.60-5.80); Red Cell Distribution Width 12.1 % (11.0-16.0); White Blood Count 6.9 X10*3/uL (4.8-10.8)
[2024-02-13 03:30] LABS: Alanine Aminotransferase 17 U/L (0-40); Albumin Level 4.1 g/dL (3.5-5.0); Alkaline Phosphatase 58 U/L (39-117); Anion Gap 10 (12-20); Aspartate Amino Transferase 20 U/L (5-37); Bilirubin Total 0.8 mg/dL (0.0-1.0); Blood Urea Nitrogen 21 mg/dL (9-16); Calcium 9.3 mg/dL (8.4-10.2); Carbon Dioxide 30 mmol/L (22-29); Chloride 104 mmol/L (96-108); Creatinine Clr Calc Pharmacy 85.2; Estimated Glomerular Filt Rate 53; Glucose Random 97 mg/dL (60-115); Potassium 4.2 mmol/L (3.3-5.1); Sodium 140 mmol/L (135-145); Total Protein 6.8 g/dL (6.5-8.0)
[2024-02-13 04:58] VITALS: BP 130/70; PULSE 57; RESP 16; TEMP 36.5; O2SAT 95
--- NOTE | 2024-02-13 05:01 | PC.NURSE ---
pt confused, disorientated and reassessed, charge nurse aware and clinical coordinator.
--- NOTE | 2024-02-13 05:44 | ED.GENADULT ---
HPI - General Adult General Chief complaint: General Medical Stated complaint: weakness Time Seen by Provider: 02/13/24 05:44 Source: patient and other (Fiancee) Mode of arrival: ambulatory Limitations: no limitations History of Present Illness HPI narrative: 48-year-old male with history of diabetes mellitus, hypertension, asthma, sleep apnea noncompliant with CPAP machine who presents emergency department for evaluation of insomnia and confusion. The patient came to the emergency department with his who shift in to be evaluated for palpitations. While they were waiting to be seen the patient seemed to be confused in the is concerned that he was very sleep deprived and this may trigger a seizure in him so he also signed in his patient. He states that he has not been able to sleep very well over the last week. He states that approximately 1 week prior he had a seizure while he was wearing his CPAP machine so we decided not to wear the CPAP. Since that time he has not been able to sleep, he states he wakes up multiple times at night. He states he feels very tired and sleepy during the day. According to his fiancee while they were waiting in the waiting room he seem to be confused and she states that she has seen this before when he has been sleep deprived and this is triggered seizures in him. At the time my evaluation the patient was sleeping and when I woke him up he was able to give me history but appeared to be Very tired and wanted to fall back asleep. He denied fever, chills, rhinorrhea, cough, chest pain, nausea, vomiting or diarrhea. Related Data Previous Rx's ?Medication ?Instructions ?Recorded cyclobenzaprine 10 mg tablet 10 mg PO BEDTIME #10 tabs 05/04/22 lidocaine 4 % topical patch 1 patch topical DAILY PRN pain #15 05/04/22 (AsperFlex (lidocaine)) ea lorazepam 1 mg tablet (Ativan) 1 mg PO BEDTIME PRN insomnia #7 02/13/24 tabs Allergies Allergy/AdvReac Type Severity Reaction Status Date / Time No Known Allergies Allergy Verified 02/13/24 02:40 Review of Systems Review of Systems: Yes all other systems are reviewed and are negative PMFSH Past Medical History Medical History Seizure disorder Meningioma Surgical History H/O craniotomy Social History Social History Unable to assess alcohol history related to: Unable to respond Alcohol intake: never Patient Tobacco Use Status: Never used Tobacco Smoked in Last 30 Days: No Use of substances other than those prescribed or required for medical reasons: No Advance Directives: No Advance Directives Information Provided: Yes Physical Exam ED Vital Signs: Vital Signs - 24 hr 02/13/24 02:37 02/13/24 04:58 Temperature 98 F 97.7 F Pulse Rate 58 57 Respiratory Rate 20 16 Blood Pressure 124/69 130/70 Pulse Oximetry 98 95 Oxygen Delivery Method Room Air Room Air BMI result Body Mass Index 32.1 vital signs were normal Exam: General: patient issue was sleeping, I woke him up and he was able to give a history but appeared to be very tired and just wanted to fall back asleep Head: Normocephalic, atraumatic EENT: PERRL, Lids normal, sclera normal, conjunctiva normal, nose normal , ears normal, throat without erythema or exudates Neck: Supple, no adenopathy Lung: breath sounds symmetric, no wheezing, rales or rhonchi Chest: symmetric movement, nontender Heart: regular rate and rhythm, normal S1, S2 no murmurs or rubs Abdomen: soft, non-tender, nondistended, normal bowel sounds Back: no vertebral tenderness, no CVAT Extremities: no deformities, moves all extremities symmetrically Neuro: Awake, alert, oriented, normal speech, cranial nerves intact, moves all extremities symmetrically Psych: Pleasant, cooperative Medications Administered Discontinued Medications Generic Name Dose Route Start Last Admin Trade Name Freq PRN Reason Stop Dose Admin Lamotrigine 300 mg 02/13/24 06:01 02/13/24 06:21 Lamotrigine 100 Mg Tablet PO 02/13/24 06:02 300 mg ONCE ONE Administration Lorazepam 2 mg 02/13/24 06:00 02/13/24 06:48 Lorazepam 1 Mg Tablet PO 02/13/24 06:01 Not Given ONCE STA Medical Decision Making Medical Decision Making MDM Narrative: 48-year-old male with history of diabetes mellitus, hypertension, asthma, obstructive sleep apnea, seizure disorder, meningioma of the brain resected many years prior who presents to the emergency department for evaluation of insomnia x1 week and confusion that developed while he was waiting in the emergency department. Vital signs were normal. Physical examination did reveal that he was very tired but otherwise exam was unremarkable . Differential diagnosis: Includes but is not limited to Insomnia, sleep deprivation, noncompliance with CPAP machine, electrolyte abnormalities, anemia Following evaluation was ordered: CBC, CMP, point of care glucose Patient was initially treated with the following: Lamictal 300 mg orally Course: the patient's physical examination was unremarkable. His laboratory evaluation was also unremarkable. Initially I ordered Ativan 2 mg orally to raise his seizure threshold however the patient was very somnolent and this medication was not given. The patient is anxious about wearing his CPAP machine is he believes that it may have caused him to have a seizure-the patient changed the type of mass that he is wearing a believes that the this is the reason why had a seizure. I believe that there is a component of anxiety to his not wanting to wear the CPAP machine therefore I prescribed Ativan 1 mg orally for 1 week. I strongly advised him to wear the CPAP machine since being sleep deprived from waking up multiple times in our may have contributed to his seizure 1 week prior. I also told him that he should discuss changing the mask with his CPAP company if he feels that the mask is a problem. Patient was given printed and verbal instructions and discharged home. Admission/Observation Consideration of admission/observation: Escalation of care including admission/observation considered Lab Data MDM Lab Attestation statement: I reviewed the patient's lab results. My independent interpretation patient's laboratory evaluation is as follows: CBC was normal. BUN and creatinine were elevated 21 and 1.42. Bicarb was elevated 30. Liver function tests were normal. There are no significant abnormalities on the patient's laboratory evaluation to explain his insomnia and confusion. 02/13/24 03:10 02/13/24 03:10 Labs: Lab Results 02/13/24 02/13/24 Range/Units 02:37 03:10 WBC 6.9 (4.8-10.8) X10*3/uL RBC 4.92 (4.60-5.80) X10*6/uL Hgb 14.5 (14.0-18.0) g/dl Hct 43.1 (42.0-52.0) % MCV 87.6 (80.0-98.0) fL MCH 29.5 (27.0-33.0) pg MCHC 33.6 (31.0-36.0) g/dl RDW 12.1 (11.0-16.0) % Plt Count 161 D (160-400) X10*3/uL MPV 10.8 (9.4-12.4) fL Immature Gran % (Auto) 0.9 H (0.0-0.4) % Neut % (Auto) 60.8 (45-73) % Lymph % (Auto) 25.2 (20-40) % [place] % (Auto) 7.8 (2-11) % Eos % (Auto) 4.1 H (0-4) % Baso % (Auto) 1.2 (0-2) % Lymph # (Auto) 1.7 (1.2-4.9) X10*3/uL [place] # (Auto) 0.5 (0.1-1.2) X10*3/uL Eos # (Auto) 0.3 (0.0-0.4) X10*3/uL Baso # (Auto) 0.1 (0.0-0.2) X10*3/uL Abs Immat Gran (auto) 0.06 H (0.00-0.03) X10*3/uL Absolute Neuts (auto) 4.2 (2.0-8.3) x10*3/uL Absolute Nucleated RBC 0.000 (0.0-0.012) X10*3/uL Nucleated RBC % (auto) 0.0 (0.0-0.2) /100WBC Sodium 140 (135-145) mmol/L Potassium 4.2 (3.3-5.1) mmol/L Chloride 104 (96-108) mmol/L Carbon Dioxide 30 H (22-29) mmol/L Anion Gap 10 L (12-20) BUN 21 H (9-16) mg/dL Creatinine 1.42 H (0.5-1.4) mg/dL Estim Creat Clear Calc 85.2 Estimated GFR 53 POC Glucose 90 (60-115) mg/dL Random Glucose 97 (60-115) mg/dL Calcium 9.3 (8.4-10.2) mg/dL Total Bilirubin 0.8 (0.0-1.0) mg/dL AST 20 (5-37) U/L ALT 17 (0-40) U/L Alkaline Phosphatase 58 (39-117) U/L Total Protein 6.8 (6.5-8.0) g/dL Albumin 4.1 (3.5-5.0) g/dL Independent Historian Clinical information obtained from an independent historian. History obtained from or confirmed by: Other ( fiancee) Prescription Management I considered prescription management with: Other ( anti-anxietylytic, Ativan) Chronic Conditions Patient?s care impacted by: Diabetes, Hypertension and Other ( obstructive sleep apnea) Discharge Plan Discharge Clinical Impression: Insomnia, Seizure disorder, Apnea, sleep Patient Disposition: Home, Self-Care Additional Instructions: Your blood work was normal. Your inability to sleep is most likely related to your sleep apnea. It is important that you where your CPAP mask every night otherwise you will be sleep deprived from waking up multiple times every hour secondary to sleep apnea. Your CPAP machine is not the cause of your seizure. You received Ativan 2 mg orally here in the emergency department to help you sleep today I am prescribing Ativan 1 mg at bedtime for the next week to help you sleep but it is important that you sleep with your CPAP mask. You received your morning dose of Lamictal 300 mg here in the emergency, take your next dose tomorrow morning. Follow-up with your doctor in 2 days. Please return to the emergency department if your symptoms get worse or if you develop any symptoms that are concerning to you. Prescriptions: New lorazepam [Ativan] 1 mg tablet 1 mg PO BEDTIME PRN (Reason: insomnia) Qty: 7 0RF Rx Instructions: Patient may request partial fill No Action cyclobenzaprine 10 mg tablet 10 mg PO BEDTIME Qty: 10 0RF lidocaine [AsperFlex (lidocaine)] 4 % adhesive patch,medicated 1 patch topical DAILY PRN (Reason: pain) Qty: 15 0RF Interventions: ED Discharge Assessment Last Done: 02/13/24 06:53 Discharge Date/Time: 02/13/24 06:54 Print Language: [place]
[2024-02-13 06:00] VITALS: BP 111/66; PULSE 65; RESP 17; TEMP 36.7; O2SAT 97
--- NOTE | 2024-02-13 06:04 | PC.NURSE ---
pt from home, a&ox4, respirations even and unlabored. pt reporting inability to sleep for the night while was waiting in the waiting room to be seen, pt was concerned for possible seizure due to lack of sleep and wanted to be seen. provider at bedside to assess pt. pt normal sinus on tele 68-70bpm.
[2024-02-13] MEDS: lamoTRIgine 100 MG TABLET 300 MG PO (06:21)
[2024-02-13 06:53] VITALS: BP 111/66; PULSE 65; RESP 17; TEMP 36.7; O2SAT 97
[2024-02-14 07:10] LABS: Glucose, Whole Blood 90 mg/dL (60-115)
== END 2024-02-13 06:54 | disposition home or self-care (01) ==
PROVIDERS: Emergency Provider Emergency Medicine Emergency Medical Services
DX: G47.00 Insomnia, unspecified (principal); G47.30 Sleep apnea, unspecified; G40.909 Epilepsy, unspecified, not intractable, without status epilepticus; E11.9 Type 2 diabetes mellitus without complications; I10 Essential (primary) hypertension
CPT/HCPCS: 36415; 80053; 82947; 85025; 99283; 99284